=== PATIENT | female | born 1975 | race Caucasian/White ===

== ENCOUNTER → 2019-01-11 | Day surgery (SDC) | payer OTHER ==
[~2019-01-11] VITALS: Ht 160 cm; Wt 133.2 kg
[~2019-01-11] MED LIST: ASPI-1182 PO; ATOR40TA28 PO; DIPH25 PO; FLUO-191 PO; FLUT16H NASAL; GABA-531 PO; GLIP2.5ER PO; INSLAN SQ; INSNOV SQ; IPRA3AMP24 IH; LIDOCAINE/PF 2% 5 ML VIAL IM ONE; LIRA0.6P SQ; LISI-662 PO; LORA10TA7 PO; METF-960 PO; METO-296 PO; NITR.4 SL; OMEP20 PO; PROPOFOL 1% 20 ML VIAL IVP ONE; SODI45SP10 NS; SODIUM CHLORIDE 0.9% 1,000 ML IV ONE
[2019-01-11 11:45] LABS: GLUCOMETER DEV NAME(LOC) SDS.; GLUCOSE,POINT OF CARE 107 MG/DL (70-110)
== END | disposition home or self-care (01) ==
LOC: SURGERY 10:40
PROVIDERS: ATTEND Student in an Organized Health Care Education/Training Program
DX: K63.5 Polyp of colon (principal); K64.8 Other hemorrhoids; Z80.0 Family history of malignant neoplasm of digestive organs; I25.10 Atherosclerotic heart disease of native coronary artery without angina pectoris; G47.33 Obstructive sleep apnea (adult) (pediatric); Z86.711 Personal history of pulmonary embolism; D50.9 Iron deficiency anemia, unspecified
CPT/HCPCS: 45380; 82962; 84703; 88305; C1769; J2704; J3490; J7030

== ENCOUNTER → 2019-03-29 | Day surgery (SDC) | payer OTHER ==
[~2019-03-29] VITALS: Ht 160 cm; Wt 135.0 kg
[~2019-03-29] MED LIST changes: -ASPI-1182 PO; -DIPH25 PO; +EXEN2PEN SQ; -FLUO-191 PO; -FLUT16H NASAL; -GLIP2.5ER PO; -IPRA3AMP24 IH; -LIDOCAINE/PF 2% 5 ML VIAL IM ONE; +LIDOCAINE/PF 2% 5 ML VIAL INJ ONE; -LIRA0.6P SQ; -LISI-662 PO; -LORA10TA7 PO; -METO-296 PO; -NITR.4 SL; +ONDANSETRON HCL 4 MG/2 ML VIAL IVP STA; +ONDANSETRON HCL 4 MG/2 ML VIAL ONE; +RIVA15T PO; -SODI45SP10 NS; +SPIR50 PO
[2019-03-29 12:35] LABS: GLUCOMETER DEV NAME(LOC) SDS.; GLUCOSE,POINT OF CARE 119 MG/DL (70-110)
== END | disposition home or self-care (01) ==
LOC: SURGERY 11:51
PROVIDERS: ATTEND Student in an Organized Health Care Education/Training Program
DX: K31.89 Other diseases of stomach and duodenum (principal); I25.10 Atherosclerotic heart disease of native coronary artery without angina pectoris; G47.33 Obstructive sleep apnea (adult) (pediatric); K21.9 Gastro-esophageal reflux disease without esophagitis; J45.909 Unspecified asthma, uncomplicated; D50.9 Iron deficiency anemia, unspecified; E11.9 Type 2 diabetes mellitus without complications; E66.01 Morbid (severe) obesity due to excess calories; G47.30 Sleep apnea, unspecified; Z79.82 Long term (current) use of aspirin; Z79.899 Other long term (current) drug therapy; Z88.1 Allergy status to other antibiotic agents; Z88.0 Allergy status to penicillin; Z88.8 Allergy status to other drugs, medicaments and biological substances; Z86.711 Personal history of pulmonary embolism; Z98.890 Other specified postprocedural states; Z83.3 Family history of diabetes mellitus; F17.210 Nicotine dependence, cigarettes, uncomplicated; Z68.43 Body mass index [BMI] 50.0-59.9, adult; Z79.4 Long term (current) use of insulin
CPT/HCPCS: 43239; 82962; 84703; 88305; C1769; J2405; J2704; J3490; J7030

== ENCOUNTER 2020-01-15 06:52 | Day surgery (SDC) | payer OTHER ==
[~2020-01-15] VITALS: Ht 162.6 cm; Wt 122.5 kg
[~2020-01-15 06:52] MED LIST changes: -LIDOCAINE/PF 2% 5 ML VIAL INJ ONE; -ONDANSETRON HCL 4 MG/2 ML VIAL IVP STA; -ONDANSETRON HCL 4 MG/2 ML VIAL ONE; -PROPOFOL 1% 20 ML VIAL IVP ONE; +SODIUM CHLORIDE 0.9% 1,000 ML ONE
[2020-01-15] MEDS ORDERED: FentaNYL CITRATE-PF 100 MCG/2 ML VIAL ONE (07:33)
[2020-01-15] MEDS ORDERED: MIDAZOLAM HCL 2 MG/2 ML VIAL ONE (07:33)
[2020-01-15 07:54] LABS: GLUCOMETER DEV NAME(LOC) SDS.; GLUCOSE,POINT OF CARE 101 MG/DL (70-110)
[2020-01-15] MEDS ORDERED: MethylPREDNISolone SOD SUCC 125 MG/2 ML VIAL IVP ONE (09:00)
[2020-01-15] MEDS ORDERED: MethylPREDNISolone SOD SUCC 125 MG/2 ML VIAL ONE (09:38)
[2020-01-15] MEDS ORDERED: ALBUTEROL SULFATE 2.5 MG/0.5 ML NEB SOLUTION NEB ONE (17:14)
[2020-01-15] MEDS ORDERED: LIDOCAINE 4% 50 ML SOLUTION ONE (17:14)
[2020-01-15] MEDS ORDERED: LIDOCAINE 2% 30 ML JELLY ONE (17:14)
[2020-01-15] MEDS ORDERED: BENZOCAINE 20% 50 MCG/SPRAY 57 GM ONE (17:14)
[2020-01-15] MEDS ORDERED: OXYGEN THERAPY IH SCH (20:00)
== END 2020-01-15 10:35 | disposition home or self-care (01) ==
LOC: SURGERY 06:52
PROVIDERS: ATTEND Internal Medicine Critical Care Medicine
DX: R05 Cough (principal); R04.2 Hemoptysis; J34.89 Other specified disorders of nose and nasal sinuses; J98.8 Other specified respiratory disorders; J38.4 Edema of larynx; B37.0 Candidal stomatitis; E11.9 Type 2 diabetes mellitus without complications; E78.00 Pure hypercholesterolemia, unspecified; D64.9 Anemia, unspecified; I25.10 Atherosclerotic heart disease of native coronary artery without angina pectoris; G47.30 Sleep apnea, unspecified; Z90.49 Acquired absence of other specified parts of digestive tract; F17.210 Nicotine dependence, cigarettes, uncomplicated; Z88.0 Allergy status to penicillin; Z88.8 Allergy status to other drugs, medicaments and biological substances; Z79.899 Other long term (current) drug therapy
CPT/HCPCS: 31623; 31624; 71045; 82962; 84703; 87015; 87070; 87101; 87205; 87206; 87220; 88108; 88184; 88185; 88312; 93005; J2250; J2930; J3010; J7030